=== PATIENT | male | born 1960 | race Caucasian/White ===

== ENCOUNTER 2018-02-25 00:24 | Observation (INO) | payer BC ==
[2018-02-25] MEDS ORDERED: ASPIRIN 81 MG CHEWABLE TABLET ONE (00:43)
[2018-02-25] MEDS ORDERED: NITROGLYCERIN 0.4 MG/TAB SL ONE (00:52)
[2018-02-25 01:10] LABS: Absolute Lymphocytes (CBC) 2.7 K/uL (0.7-4.9); Absolute Monocytes 0.5 K/uL (0.1-1.3); Absolute Neutrophil 2.4 K/uL (1.8-8.0); Basophils % 1.3 % (0-1.3); Eosinophils % 3.7 % (0-4.4); Hematocrit 45.8 % (39.6-49.0); Lymphocytes % 45.7 % (15.3-44.8); MCH 33.7 pg (27.0-35.0); MCV 97.5 fL (80-100); MPV 8.4 fL (7.6-11.3); Monocytes % 8.4 % (3.3-12.3)
[2018-02-25 01:14] LABS: Protime INR 0.95
[2018-02-25 01:24] LABS: Bicarbonate 25 mEq/L (21-31); Glucose Level 93 mg/dL (65-120); Potassium 3.8 mEq/L (3.6-5.0); Sodium Level 139 mEq/L (135-145)
[2018-02-25 01:30] LABS: ALT/SGPT 58 IU/L (10-60); AST/SGOT 42 IU/L (10-42); Alkaline Phosphatase 59 IU/L (42-121); BUN Blood Urea Nitrogen 9 mg/dL (6-20); Bilirubin Direct 0.1 mg/dL (0-0.2); Bilirubin Total 0.8 mg/dL (0.3-1.2); CKMB Creatine Kinase MB 2.8 ng/ml (0.3-4.0); Creatine Phosphokinase 236 IU/L (22-269); Magnesium 2.3 mg/dL (1.8-2.5); Protein, Total 7.4 g/dL (6.0-8.3)
--- NOTE | 2018-02-25 02:18 | EDPHYS ---
Physician Documentation [facility] Name: Sujit Madrigal Jr Age: 57 yrs Sex: Male : 1960 Arrival Date: 02/25/2018 Time: 00:25 Bed 15 Private MD: Marni Bowman F ED Physician Tyrone Nixon HPI: 02/25 00:50 This 57 yrs old Male presents to ER via Ambulatory with complaints of Chest pm1 Pain, Dizziness. 00:50 The patient or guardian reports chest pain that is located primarily in the anterior pm1 chest wall, right. Onset: at 00:15. The pain does not radiate. Associated signs and symptoms: Pertinent positives: dizziness, shortness of breath, Pertinent negatives: abdominal pain, nausea, vomiting. The chest pain is described as sharp. Duration: The patient or guardian reports a single episode. Modifying factors: The symptoms are alleviated by nothing. the symptoms are aggravated by deep breath. Severity of pain: in the emergency department the pain is a 5 / 10. The patient has not experienced similar symptoms in the past. Patient got up to urinate and started experiencing chest pain. Historical: - Allergies: 00:37 No Known Allergies; fc - Home Meds: 00:37 None [Active]; fc - PMHx: 00:37 None; fc - PSHx: 00:37 Cholecystectomy; Appendectomy; fc - Immunization history:: Last tetanus immunization: unknown. - Social history:: Smoking status: Patient/guardian denies using tobacco, Patient uses alcohol, occasionally. Patient/guardian denies using street drugs. - Ebola Screening: : Patient negative for fever greater than or equal to 101.5 degrees Fahrenheit, and additional compatible Ebola Virus Disease symptoms Patient denies exposure to infectious person Patient denies travel to an Ebola-affected area in the 21 days before illness onset. ROS: 01:00 Constitutional: Negative for fever, chills, and weight loss, Eyes: Negative for injury, pm1 pain, redness, and discharge, ENT: Negative for injury, pain, and discharge, Neck: Negative for injury, pain, and swelling. 01:00 Abdomen/GI: Negative for abdominal pain, nausea, vomiting, diarrhea, and constipation, Back: Negative for injury and pain, : Negative for injury, bleeding, discharge, and swelling, MS/Extremity: Negative for injury and deformity, Skin: Negative for injury, rash, and discoloration. 01:00 Cardiovascular: Positive for chest pain, Negative for edema, orthopnea, palpitations. 01:00 Respiratory: Positive for shortness of breath, Negative for cough, dyspnea on exertion. 01:00 Neuro: Positive for dizziness, Negative for numbness, syncope, near syncope, tingling, weakness. Exam: 01:00 Constitutional: This is a well developed, well nourished patient who is awake, alert, pm1 and in no acute distress. Head/Face: Normocephalic, atraumatic. Eyes: Pupils equal round and reactive to light, extra-ocular motions intact. Lids and lashes normal. Conjunctiva and sclera are non-icteric and not injected. Cornea within normal limits. Periorbital areas with no swelling, redness, or edema. ENT: Nares patent. No nasal discharge, no septal abnormalities noted. Tympanic membranes are normal and external auditory canals are clear. Oropharynx with no redness, swelling, or masses, exudates, or evidence of obstruction, uvula midline. Mucous membranes moist. Neck: Trachea midline, no thyromegaly or masses palpated, and no cervical lymphadenopathy. Supple, full range of motion without nuchal rigidity, or vertebral point tenderness. No Meningismus. Chest/axilla: Normal chest wall appearance and motion. Nontender with no deformity. No lesions are appreciated. Cardiovascular: Regular rate and rhythm with a normal S1 and S2. No gallops, murmurs, or rubs. Normal PMI, no JVD. No pulse deficits. Respiratory: Lungs have equal breath sounds bilaterally, clear to auscultation and percussion. No rales, rhonchi or wheezes noted. No increased work of breathing, no retractions or nasal flaring. Abdomen/GI: Soft, non-tender, with normal bowel sounds. No distension or tympany. No guarding or rebound. No evidence of tenderness throughout. Back: No spinal tenderness. No costovertebral tenderness. Full range of motion. Skin: Warm, dry with normal turgor. Normal color with no rashes, no lesions, and no evidence of cellulitis. MS/ Extremity: Pulses equal, no cyanosis. Neurovascular intact. Full, normal range of motion. 01:00 Neuro: Orientation: is normal, Motor: moves all fours, Sensation: is normal, no obvious gross deficits. Vital Signs: 00:30 BP 155 / 106; Pulse 64; Resp 16; Temp 97.6(O); Pulse Ox 99% on R/A; Weight 108.86 kg fc (R); Height 5 ft. 11 in. (180.34 cm) (R); Pain 6/10; 00:52 BP 138 / 94; Pulse 69; Resp 20; Pulse Ox 96% ; Pain 5/10; cr4 00:57 BP 138 / 88; Pulse 73; Resp 18; Pulse Ox 97% 2 lpm ; Pain 4/10; cr4 01:03 BP 115 / 82; Pulse 79; Resp 18; Pulse Ox 96% 2 lpm ; Pain 3/10; cr4 01:08 BP 122 / 71; Pulse 74; Resp 14; Pulse Ox 98% 2 lpm ; Pain 2/10; cr4 01:25 BP 115 / 77; Pulse 72; Resp 12; Pulse Ox 99% 2 lpm ; Pain 2/10; cr4 02:54 BP 111 / 83; Pulse 55; Resp 18 S; Pulse Ox 99% on 2 lpm NC; Pain 2/10; jd3 00:30 Body Mass Index 33.47 (108.86 kg, 180.34 cm) fc MDM: 00:34 Patient medically screened. pm1 02:07 Data reviewed: vital signs. Data interpreted: Pulse oximetry: on room air is 99 %. pm1 Interpretation: normal. 02:08 Counseling: I had a detailed discussion with the patient and/or guardian regarding: the pm1 historical points, exam findings, and any diagnostic results supporting the discharge/admit diagnosis, lab results, radiology results, the need for further work-up and treatment in the hospital, to return to the emergency department if symptoms worsen or persist or if there are any questions or concerns that arise at home. 03:43 Physician consultation: Marni Bowman MD was contacted at 03:43, regarding admission, pm1 patient's condition, and will see patient tomorrow. 02/25 00:34 Order name: Basic Metabolic Panel; Complete Time: 02:06 pm1 02/25 00:34 Order name: BNP; Complete Time: 02:06 pm1 02/25 00:34 Order name: CBC with Diff; Complete Time: 01:29 pm1 02/25 00:34 Order name: Ckmb; Complete Time: 02:06 pm02/25 00:34 Order name: CPK; Complete Time: 02:06 pm02/25 00:34 Order name: LFT's; Complete Time: 02:06 pm02/25 00:34 Order name: Magnesium; Complete Time: 02:06 pm02/25 00:34 Order name: PT-INR; Complete Time: 01:29 pm02/25 00:34 Order name: Ptt, Activated; Complete Time: 01:29 pm02/25 00:34 Order name: Troponin (emerg Dept Use Only); Complete Time: 02:06 pm02/25 00:34 Order name: XRAY Chest (1 view) 02/25 00:34 Order name: EKG; Complete Time: 00:34 pm02/25 00:34 Order name: Cardiac monitoring; Complete Time: 01:17 pm02/25 00:34 Order name: EKG - Nurse/Tech; Complete Time: 01:17 pm02/25 00:34 Order name: IV Saline Lock; Complete Time: 01:17 pm02/25 00:34 Order name: Labs collected and sent; Complete Time: 01:17 pm02/25 00:34 Order name: O2 Per Protocol; Complete Time: 01:17 pm02/25 00:34 Order name: O2 Sat Monitoring; Complete Time: 01:17 pm1 Administered Medications: 00:47 Drug: Aspirin Chewable Tablet 324 mg Route: PO; cr4 02:02 Follow up: Response: No adverse reaction; Pain is decreased cr4 01:11 Drug: Nitroglycerin 0.4 mg {Note: 3 doses given 0052, 0057,0108 .} Route: Sublingual; cr4 01:15 Follow up: Response: No adverse reaction; Marked relief of symptoms; Pain is decreased cr4 03:06 Follow up: Response: No adverse reaction; Marked relief of symptoms jd3 02:39 Drug: Lovenox 1 mg/kg Route: Sub-Q; Site: abdomen; cr4 03:06 Follow up: Response: No adverse reaction jd3 Disposition: 02/25/18 02:18 Hospitalization ordered by Marni Bowman for Observation. Preliminary diagnosis is Chest pain, unspecified. - Bed requested for Telemetry/MedSurg (observation). - Status is Observation. jd3 - Condition is Stable. - Problem is new. - Symptoms have improved. UTI on Admission? No Addendum: 02/28/2018 07:16 Co-signature as Attending Physician, Tyrone Nixon MD. g s Signatures: Dispatcher [employer] EDMS Leyda Marmolejo RN RN Mis Navarro, RN RN Sarika Dorantes, RN RN cr4 Uvaldo Guaman, SENIOR SPECIALIST SENIOR SPECIALIST pm1 Tyrone Nixon MD MD Jalen Arvizu RN RN jd3 Corrections: (The following items were deleted from the chart) 02/25 02:44 02:18 Hospitalization Ordered by Marni Bowman MD for Observation. Preliminary mw diagnosis is Chest pain, unspecified. Bed requested for Telemetry/MedSurg (observation). Status is Observation. Condition is Stable. Problem is new. Symptoms have improved. UTI on Admission? No. pm1 03:08 02:44 02/25/2018 02:18 Hospitalization Ordered by Marni Bowman MD for Observation. jd3 Preliminary diagnosis is Chest pain, unspecified. Bed requested for Telemetry/MedSurg (observation). Status is Observation. Condition is Stable. Problem is new. Symptoms have improved. UTI on Admission? No. mw
--- NOTE | 2018-02-25 02:18 | ER ---
Nurse's Notes [facility] Name: Sujit Madrigal Jr Age: 57 yrs Sex: Male : 1960 Arrival Date: 02/25/2018 Time: 00:25 Bed 15 Private MD: Marni Bowman F Diagnosis: Chest pain, unspecified Presentation: 02/25 00:30 Presenting complaint: Patient states: that he woke up and was walking to the bathroom. fc He started to have severe sharp right sided chest pain along with dizziness. Denies any nausea or vomiting but does have shortness of breath. Transition of care: patient was not received from another setting of care. Onset of symptoms was February 25, 2018 at 00:15. Risk Assessment: Do you want to hurt yourself or someone else? Patient reports no desire to harm self or others. Initial Sepsis Screen: Does the patient meet any 2 criteria? No. Patient's initial sepsis screen is negative. Does the patient have a suspected source of infection? No. Patient's initial sepsis screen is negative. Care prior to arrival: None. 00:30 Method Of Arrival: Ambulatory 00:30 Acuity: GRADY 3 fc Historical: - Allergies: 00:37 No Known Allergies; fc - Home Meds: 00:37 None [Active]; fc - PMHx: 00:37 None; fc - PSHx: 00:37 Cholecystectomy; Appendectomy; fc - Immunization history:: Last tetanus immunization: unknown. - Social history:: Smoking status: Patient/guardian denies using tobacco, Patient uses alcohol, occasionally. Patient/guardian denies using street drugs. - Ebola Screening: : Patient negative for fever greater than or equal to 101.5 degrees Fahrenheit, and additional compatible Ebola Virus Disease symptoms Patient denies exposure to infectious person Patient denies travel to an Ebola-affected area in the 21 days before illness onset. Screenin:30 Abuse screen: Denies threats or abuse. Nutritional screening: No deficits noted. fc Tuberculosis screening: No symptoms or risk factors identified. Fall Risk None identified. Assessment: 00:39 General: Appears distressed, uncomfortable, obese, Behavior is anxious, restless. Pain: cr4 Complains of pain in chest Pain does not radiate. Pain currently is 5 out of 10 on a pain scale. Quality of pain is described as pressure, stabbing, Pain began 30 min ago. Is intermittent, Alleviated by breathing in. Neuro: Reports dizziness, a syncopal episode Denies weakness blurred vision difficulty swallowing, numbness headache. Cardiovascular: Reports chest pain, diaphoresis, lightheadedness, palpitations, syncope, Heart tones S1 S2 Capillary refill < 3 seconds Clubbing of nail beds is absent JVD is absent Patient's skin is warm and dry. Pulses are all present. Edema is absent. Rhythm is regular Chest pain is described as "worst pain of my life". Respiratory: Airway is patent Trachea midline Respiratory effort is even, unlabored, Respiratory pattern is regular, Breath sounds are clear bilaterally. GI: Reports nausea. : Denies burning with urination, inability to void, incontinence. EENT: No deficits noted. Derm: No deficits noted. 01:10 Reassessment: Patient and/or family updated on plan of care and expected duration. Pain cr4 level reassessed. Patient is alert, oriented x 3, equal unlabored respirations, skin warm/dry/pink. Patient states feeling better. Patient states symptoms have improved. 01:58 Reassessment: Patient and/or family updated on plan of care and expected duration. Pain cr4 level reassessed. Patient is alert, oriented x 3, equal unlabored respirations, skin warm/dry/pink. Patient states feeling better. Patient states symptoms have improved. Cardiovascular: Reports chest pain, syncope, improved greatly since arriving to floor. 03:06 Reassessment: Patient appears in no apparent distress at this time. Patient and/or jd3 family updated on plan of care and expected duration. Pain level reassessed. Patient is alert, oriented x 3, equal unlabored respirations, skin warm/dry/pink. pt reported understanding of need for admission. Vital Signs: 00:30 BP 155 / 106; Pulse 64; Resp 16; Temp 97.6(O); Pulse Ox 99% on R/A; Weight 108.86 kg fc (R); Height 5 ft. 11 in. (180.34 cm) (R); Pain 6/10; 00:52 BP 138 / 94; Pulse 69; Resp 20; Pulse Ox 96% ; Pain 5/10; cr4 00:57 BP 138 / 88; Pulse 73; Resp 18; Pulse Ox 97% 2 lpm ; Pain 4/10; cr4 01:03 BP 115 / 82; Pulse 79; Resp 18; Pulse Ox 96% 2 lpm ; Pain 3/10; cr4 01:08 BP 122 / 71; Pulse 74; Resp 14; Pulse Ox 98% 2 lpm ; Pain 2/10; cr4 01:25 BP 115 / 77; Pulse 72; Resp 12; Pulse Ox 99% 2 lpm ; Pain 2/10; cr4 02:54 BP 111 / 83; Pulse 55; Resp 18 S; Pulse Ox 99% on 2 lpm NC; Pain 2/10; jd3 00:30 Body Mass Index 33.47 (108.86 kg, 180.34 cm) fc ED Course: 00:25 Patient arrived in ED. ds1 00:25 Marni Bowman MD is Private Physician. ds1 00:27 Uvaldo Guaman NP is PHCP. pm1 00:27 Tyrone Nixon MD is Attending Physician. pm1 00:30 Arm band placed on Patient placed in an exam room, on a stretcher. fc 00:30 Patient has correct armband on for positive identification. Placed in gown. Bed in low fc position. Call light in reach. groundwater monitoring technician on. Pulse ox on. NIBP on. 00:30 No provider procedures requiring assistance completed. Patient maintains SpO2 fc saturation greater than 95% on room air. 00:36 Triage completed. fc 00:42 X-ray completed. Portable x-ray completed in exam room. Patient tolerated procedure jw2 well. 00:44 XRAY Chest (1 view) In Process Unspecified. EDMS 00:44 Inserted saline lock: 20 gauge in right antecubital area, using aseptic technique. jd3 Blood collected. 02:17 Marni Bowman MD is Hospitalizing Provider. pm1 03:05 Patient admitted, IV remains in place. jd3 Administered Medications: 00:47 Drug: Aspirin Chewable Tablet 324 mg Route: PO; cr4 02:02 Follow up: Response: No adverse reaction; Pain is decreased cr4 01:11 Drug: Nitroglycerin 0.4 mg {Note: 3 doses given 0052, 0057,0108 .} Route: Sublingual; cr4 01:15 Follow up: Response: No adverse reaction; Marked relief of symptoms; Pain is decreased cr4 03:06 Follow up: Response: No adverse reaction; Marked relief of symptoms jd3 02:39 Drug: Lovenox 1 mg/kg Route: Sub-Q; Site: abdomen; cr4 03:06 Follow up: Response: No adverse reaction jd3 Outcome: 02:18 Decision to Hospitalize by Provider. pm1 03:05 Admitted to Med/surg accompanied by tech, via wheelchair, room 204, with chart, Report jd3 called to Orion ALMANZAR 03:05 Condition: stable 03:05 Instructed on the need for admit, Demonstrated understanding of instructions. 03:08 Patient left the ED. jd3 Signatures: Dispatcher [employer] EDMS Mis Navarro, RN RN Omayra Rodriguez dsSarika Leal RN RN cr4 Uvaldo Guaman, [employer] P[employer]ER pm1 Ricarda Frost2 Jalen Arvizu RN RN jd3 Corrections: (The following items were deleted from the chart) 02:58 02:54 BP 111 / 83; Pulse 55bpm; Resp 18bpm; Spontaneous; Pulse Ox 99% RA; Pain 2/10; jd3jd3
[2018-02-25] MEDS ORDERED: ENOXAPARIN 100 MG/ML SYR SQ ONE (02:27)
[2018-02-25] MEDS ORDERED: MORPHINE 4 MG/ML SYR IV PRN (03:14)
[2018-02-25] MEDS ORDERED: ACETAMINOPHEN 500 MG TAB PO PRN (03:14)
[2018-02-25] MEDS ORDERED: ONDANSETRON 4 MG/2 ML VIAL IV PRN (03:14)
[2018-02-25 04:20] VITALS: BMI 34.0
[2018-02-25] MEDS ORDERED: ASPIRIN EC 81 MG TAB PO SCH (09:00)
--- NOTE | 2018-02-25 10:18 | EKG ---
Test Date: 2018-02-25 Test Time: 00:36:21 Dryer Operator: MEASUREMENT RESULTS: Intervals: Rate: 63 CO: 142 QRSD: 86 QT: 392 QTc: 401 [place]: P: 27 CO: 142 QRS: 54 T: 50 INTERPRETIVE STATEMENTS: Normal sinus rhythm Normal ECG Compared to ECG 07/22/2010 13:26:34 Sinus arrhythmia no longer present Electronically Signed On 02-25-18 10:17:31 CDT by Russell Duenas
--- NOTE | 2018-02-25 10:27 | RAD REPORT ---
EXAM DESCRIPTION: RAD - Chest Single View - 02/25/2018 12:45 am CLINICAL HISTORY: Chest pain. COMPARISON: 09/20/2013 FINDINGS: Portable technique limits examination quality. The lungs are grossly clear. The heart is normal in size. No displaced fractures. IMPRESSION: No acute intrathoracic process suspected.
[2018-02-25 13:27] VITALS: O2SAT 97
[2018-02-25 14:39] VITALS: BP 127/78; TEMP 97
--- NOTE | 2018-02-25 15:39 | SS ---
Date of Discharge: 02/25/2018 History Of Present Illness: A 57-year-old male, who presented to the emergency room with a complaint that he had been having right-sided chest pain, which is sharp that happened to him when he woke up, went to the bathroom. He felt a little bit dizzy, then he got concerned, and he felt like chest hazel n as described above. The chest pain had no radiation. The patient had no nausea, no vomiting. Voi deena no other complaints. Review of Systems: Cardiovascular: No complaints. No palpitation. Respiratory: No complaints. Genitourinary: No complaints. Skeletomuscular: No complaints. Gastrointestinal: No complaints. Neurological: No complaints. Past Medical History: No history of coronary artery disease or other chronic medical illnesses. Past Surgical History: He has had cholecystectomy and appendectomy in the past. Social History: Denies smoking, alcohol, or drug abuse history. Family History: Noncontributing. Medications: None. Allergies: NO KNOWN DRUG ALLERGIES. Physical Examination: Vital Signs: Blood pressure 123/79, pulse 50, and temperature 97.4. His pulse rate was in the 70s o n presentation; however, he was given beta blockers. Room air pulse oximetry 98%. HEART: Regular rate and rhythm. Chest: Clear to auscultation. Abdomen: Soft. Benign. Bowel sounds are active. Extremities: No edema. No cyanosis. Peripheral pulses are felt. Neurological: Alert, oriented, nonfocal. Grossly intact. Chest x-ray, no acute pathology. EKG normal sinus rhythm. Laboratory Data: CBC and chemistry nonrevealing. Cardiac enzyme, troponin less than 0.03. Hospital Course: The patient was admitted to the hospital. We holly the serial cardiac enzymes, whic h came back negative. Cardiology has seen the patient and they thought that the patient could be wor ked out as an outpatient with a stress test and that he could be discharged. The patient's chest hazel n has resolved almost by the time he came to emergency room and he had no other complaints. He is he modynamically stable. I think, we will go ahead and discharge the patient to follow up with Cardiolo gy with their plan and follow up with me. Look discharge orders for details. MFS/MODL Voice ID: [id number] Report ID: [id number]
--- NOTE | 2018-02-25 23:38 | CON ---
Date of Consultation: 02/25/2018 The patient was admitted to Dr. Bowman's service on 02/25/2018. I saw the patient on 02/25/2018. Reason For Consultation: Chest pain. History Of Present Illness: Mr. Madrigal is a 57-year-old white male without any past medical history whatsoever. His only risk factor from heart disease is his age, gender, and family history of heart disease on his dad's side. His dad had a massive ID in his 60s. He came in with episode of chest p ain that was sharp, left-sided, stabbing, that lasted about an hour. Prior to that, he had awoken to use the restroom from sleep and he got very dizzy and short of breath and he decided to come to the emergency room. His chest pain was much worse on breathing, that did not radiate. No PND, orthopnea , pedal edema, palpitations, or syncope. He denied any nausea or vomiting or diaphoresis. By the ti me I saw him, he already had normal CPKs, MBs, troponin, EKG, and chest x-ray and he was asymptomatic . Past Medical History: Negative. Allergies: NONE. Review of Systems: Negative. Social History: Negative for tobacco. Family History: Positive for heart disease. Medications: None. Physical Examination: Vital Signs: Stable. Afebrile. HEENT: Negative. Neck: Supple. No bruit, lymphadenopathy, JVD, or thyromegaly. Chest: Clear to auscultation and percussion. Cardiac Exam: Revealed a regular rhythm and rate without any murmurs, gallops, or rubs. Abdomen: Benign. Extremities: Revealed no clubbing, cyanosis, or edema. Diagnostic Data: As stated earlier. Impression And Plan: 1.Chest pain, most likely secondary to pleurisy. 2.Dizziness and shortness of breath may have been secondary to orthostatic hypertension. 3.Family history of heart disease. Mr. Madrigal has ruled out for a myocardial infarction. I think considering his risk factors and the duration of his symptoms of almost an hour make me concerned. I certainly would not keep him in the hospital, but I would like him to have an outpatient echocardiogram and a stress Cardiolite and I ryne l make arrangements for that as an outpatient. He can go home otherwise as far as I am concerned. NB/MODL Voice ID: [id number] Report ID: [id number]
== END 2018-02-25 14:07 | disposition home or self-care (01) ==
LOC: ER 00:24 → ERHOLD 02:48 → 2ND 02:51
PROVIDERS: ADMIT Internal Medicine; ATTEND Internal Medicine
DX: R07.9 Chest pain, unspecified (principal); Z82.49 Family history of ischemic heart disease and other diseases of the circulatory system
CPT/HCPCS: 36415; 71045; 80048; 80076; 82550; 82553; 83735; 83880; 84484; 85025; 85610; 85730; 93005; 96372; 99285; G0378; J1650

== ENCOUNTER 2018-09-08 13:54 | Emergency (ER) | payer BC ==
[2018-09-08 15:26] LABS: Absolute Lymphocytes (CBC) 2.2 K/uL (0.7-4.9); Absolute Monocytes 0.7 K/uL (0.1-1.3); Absolute Neutrophil 4.1 K/uL (1.8-8.0); Basophils % 1.1 % (0-1.3); Eosinophils % 2.3 % (0-4.4); Hematocrit 44.1 % (39.6-49.0); MCH 34.5 pg (27.0-35.0); MCV 97.5 fL (80-100); MPV 7.7 fL (7.6-11.3); Monocytes % 9.3 % (3.3-12.3); RBC Red Blood Cell Count 4.52 M/uL (4.33-5.43)
[2018-09-08 15:40] LABS: Albumin 3.8 g/dL (3.4-5.0); Bilirubin Direct 0.2 mg/dL (0-0.2); Bilirubin Total 0.5 mg/dL (0.2-1.0); Protein, Total 7.7 g/dL (6.4-8.2)
--- NOTE | 2018-09-08 17:52 | RAD REPORT ---
EXAM DESCRIPTION: CT - Abdomen Pelvis W Contrast - 09/08/2018 5:33 pm CLINICAL HISTORY: Abdominal pain, rectal bleeding COMPARISON: None. TECHNIQUE: Biphasic, helical CT imaging of the abdomen and pelvis was performed following 100 ml non -ionic IV contrast. Oral contrast was given. All CT scans are performed using dose optimization technique as appropriate and may include automated exposure control or mA/KV adjustment according to patient size. FINDINGS: No suspicious findings in the lung bases. The liver, spleen, and pancreas show no suspicious findings. Mild fatty infiltration present in the l iver. Cholecystectomy clips are present. No biliary tree dilatation. Symmetric renal function with no hydronephrosis. Nonobstructing calculi are present on the left. No p yelonephritis or acute renal parenchymal process. Partially filled urinary bladder shows no suspiciou s finding. Prostate gland and seminal vesicles within normal range. No gastric dilatation or wall thickening. No acute small bowel finding. No acute colon process. No ap pendicitis findings. There is minimal diverticulosis. No free air, free fluid or inflammatory strand ing. No hernia, mass or bulky lymphadenopathy. No adrenal abnormality. No suspicious bony findings. IMPRESSION: Contrast enhanced CT abdomen and pelvis showing no significant or suspicious finding. N onacute findings detailed in the body of the report.
--- NOTE | 2018-09-08 18:21 | EDPHYS ---
Physician Documentation [facility] Name: Sujit Madrigal Jr Age: 57 yrs Sex: Male : 1960 Arrival Date: 09/08/2018 Time: 13:56 Bed 14 Private MD: Marni Bowman F ED Physician Julito Mckenzie HPI: 09/08 23:40 This 57 yrs old Male presents to ER via Ambulatory with complaints of BLOOD kdr IN STOOL. 23:40 The patient presents to the emergency department with rectal bleeding, a moderate kdr amount, "filled toilet", bright red blood with bowel movement, on toilet paper, in toilet bowl, with multiple such episodes, 2 times since symptom onset. Onset: The symptoms/episode began/occurred today. Abdominal pain: none is appreciated. Modifying factors: The symptoms are alleviated by nothing, the symptoms are aggravated by nothing. Associated signs and symptoms: The patient has no apparent associated signs or symptoms. Severity of symptoms: At their worst the symptoms were moderate in the emergency department the symptoms have resolved and did so earlier today, have improved. The patient has not experienced similar symptoms in the past. The patient has not recently seen a physician. Historical: - Allergies: 14:10 No Known Allergies; hb - Home Meds: 14:10 None [Active]; hb - PMHx: 14:10 None; hb - PSHx: 14:10 Cholecystectomy; Appendectomy; hb 14:12 Shoulder - Left; Foot - Right; hb - Immunization history:: Adult Immunizations up to date. - Social history:: Smoking status: Patient/guardian denies using tobacco. - Ebola Screening: : No symptoms or risks identified at this time. ROS: 23:40 Constitutional: Negative for fever, chills, and weight loss, Eyes: Negative for injury, kdr pain, redness, and discharge, ENT: Negative for injury, pain, and discharge, Neck: Negative for injury, pain, and swelling, Cardiovascular: Negative for chest pain, palpitations, and edema, Respiratory: Negative for shortness of breath, cough, wheezing, and pleuritic chest pain, Back: Negative for injury and pain, : Negative for injury, bleeding, discharge, and swelling, MS/Extremity: Negative for injury and deformity, Skin: Negative for injury, rash, and discoloration, Neuro: Negative for headache, weakness, numbness, tingling, and seizure activity. Psych: Negative for depression, anxiety, suicide ideation, homicidal ideation, and hallucinations, Allergy/Immunology: Negative for hives, rash, and allergies, Endocrine: Negative for neck swelling, polydipsia, polyuria, polyphagia, and marked weight changes, Hematologic/Lymphatic: Negative for swollen nodes, abnormal bleeding, and unusual bruising. 23:40 Abdomen/GI: Positive for rectal bleeding, Negative for abdominal pain, nausea and vomiting, nausea, vomiting, and diarrhea, nausea, vomiting, diarrhea, constipation, abdominal cramps, abdominal distension, anorexia, dysphagia, hematemesis, black/tarry stool, rectal pain, bowel incontinence, flatulence, acute changes, The patient had decreased bowel movements for a few days and then increased BM and soft stools. Exam: 23:40 Constitutional: This is a well developed, well nourished patient who is awake, alert, kdr and in no acute distress. Head/Face: Normocephalic, atraumatic. Eyes: Pupils equal round and reactive to light, extra-ocular motions intact. Lids and lashes normal. Conjunctiva and sclera are non-icteric and not injected. Cornea within normal limits. Periorbital areas with no swelling, redness, or edema. Neck: Trachea midline, no thyromegaly or masses palpated, and no cervical lymphadenopathy. Supple, full range of motion without nuchal rigidity, or vertebral point tenderness. No Meningismus. Chest/axilla: Normal chest wall appearance and motion. Nontender with no deformity. No lesions are appreciated. Cardiovascular: Regular rate and rhythm with a normal S1 and S2. No gallops, murmurs, or rubs. Normal PMI, no JVD. No pulse deficits. Respiratory: Lungs have equal breath sounds bilaterally, clear to auscultation and percussion. No rales, rhonchi or wheezes noted. No increased work of breathing, no retractions or nasal flaring. Back: No spinal tenderness. No costovertebral tenderness. Full range of motion. Skin: Warm, dry with normal turgor. Normal color with no rashes, no lesions, and no evidence of cellulitis. MS/ Extremity: Pulses equal, no cyanosis. Neurovascular intact. Full, normal range of motion. Neuro: Awake and alert, GCS 15, oriented to person, place, time, and situation. Cranial nerves II-XII grossly intact. Motor strength 5/5 in all extremities. Sensory grossly intact. Cerebellar exam normal. Normal gait. Psych: Awake, alert, with orientation to person, place and time. Behavior, mood, and affect are within normal limits. 23:40 Abdomen/GI: Inspection: abdomen appears normal, Bowel sounds: active, all quadrants, Palpation: soft, nontender, in all quadrants, Rectal exam: Prostate: normal, rectal tone normal, Stool: grossly bloody, guaiac positive, hemorrhoid(s), internal, with pain, mass, is not appreciated, swelling, is not appreciated, tenderness, that is mild, With digital exam the patient was very tender. Vital Signs: 14:09 BP 126 / 92; Pulse 83; Resp 16; Temp 98.2; Pulse Ox 100% on R/A; Pain 0/10; hb 15:30 BP 132 / 82; Pulse 80; Resp 18 S; Temp 98.3; Pulse Ox 99% on R/A; Pain 0/10; sg 16:45 BP 136 / 80; Pulse 77; Resp 17; Pulse Ox 100% on R/A; Pain 0/10; sg 19:30 BP 138 / 79; Pulse 81; Resp 17 S; Pulse Ox 99% on R/A; cc3 MDM: 18:20 Patient medically screened. kdr 23:52 Data reviewed: vital signs, nurses notes, lab test result(s), radiologic studies. kdr Counseling: I had a detailed discussion with the patient and/or guardian regarding: the historical points, exam findings, and any diagnostic results supporting the discharge/admit diagnosis, lab results, radiology results, the need for outpatient follow up. 09/08 14:36 Order name: Basic Metabolic Panel; Complete Time: 18:18 kdr 09/08 14:36 Order name: CBC with Diff kdr 09/08 14:36 Order name: Creatinine for Radiology; Complete Time: 18:18 kdr 09/08 14:36 Order name: Hepatic Function; Complete Time: 18:18 kdr 09/08 14:36 Order name: Lipase; Complete Time: 18:18 kdr 09/08 16:49 Order name: CT Abd/Pelvis - W/Contrast; Complete Time: 18:18 kdr 09/08 14:36 Order name: IV Saline Lock; Complete Time: 15:19 kdr 09/08 14:36 Order name: Labs collected and sent; Complete Time: 15:19 kdr Administered Medications: 19:20 Drug: Pepcid 20 mg Route: PO; jd3 19:40 Follow up: Response: No adverse reaction; Pain is decreased cc3 Disposition: 09/08/18 18:20 Discharged to Home. Impression: Rectal bleeding. - Condition is Stable. - Discharge Instructions: Rectal Bleeding, [id number]. - Prescriptions for Pepcid 20 mg Oral Tablet - take 1 tablet by ORAL route once daily; 20 tablet. - Medication Reconciliation Form, Thank You Letter form. - Follow up: Marni Bowman MD; When: 2 - 3 days; Reason: If symptoms return, Further diagnostic work-up, Recheck today's complaints, Continuance of care, Re-evaluation by your physician. - Problem is new. - Symptoms are unchanged. Signatures: Dispatcher [employer] EDAZ Julito Mckenzie MD MD [facility] Shyann Sheehan RN RN Jalen Arvizu RN RN jd3 Kaylin Toscano cc3 Corrections: (The following items were deleted from the chart) 19:42 18:20 09/08/2018 18:20 Discharged to Home. Impression: Rectal bleeding. Condition is jd3 Stable. Forms are Medication Reconciliation Form, Thank You Letter, Antibiotic Education, Prescription Opioid Use. Follow up: Marni Bowman; When: 2 - 3 days; Reason: If symptoms return, Further diagnostic work-up, Recheck today's complaints, Continuance of care, Re-evaluation by your physician. Problem is new. Symptoms are unchanged. kdr 23:52 23:40 Abdomen/GI: Inspection: abdomen appears normal, Bowel sounds: active, all kdr quadrants, Palpation: soft, nontender, in all quadrants, Rectal exam: Prostate: normal, rectal tone normal, Stool: grossly bloody, guaiac positive, hemorrhoid(s), internal, with pain, kdr
--- NOTE | 2018-09-08 18:21 | ER ---
Nurse's Notes [facility] Name: Sujit Madrigal Jr Age: 57 yrs Sex: Male : 1960 Arrival Date: 09/08/2018 Time: 13:56 Bed 14 Private MD: Marni Bowman F Diagnosis: Rectal bleeding Presentation: 09/08 14:08 Presenting complaint: Bright red blood in stool since last night. Denies pain. hb Transition of care: patient was not received from another setting of care. Onset of symptoms was September 07, 2018. Risk Assessment: Do you want to hurt yourself or someone else? Patient reports no desire to harm self or others. Care prior to arrival: None. 14:08 Method Of Arrival: Ambulatory hb 14:08 Acuity: GRADY 3 hb 19:20 Initial Sepsis Screen: Does the patient meet any 2 criteria? No. Patient's initial cc3 sepsis screen is negative. Does the patient have a suspected source of infection? No. Patient's initial sepsis screen is negative. Historical: - Allergies: 14:10 No Known Allergies; hb - Home Meds: 14:10 None [Active]; hb - PMHx: 14:10 None; hb - PSHx: 14:10 Cholecystectomy; Appendectomy; hb 14:12 Shoulder - Left; Foot - Right; hb - Immunization history:: Adult Immunizations up to date. - Social history:: Smoking status: Patient/guardian denies using tobacco. - Ebola Screening: : No symptoms or risks identified at this time. Screenin:30 Abuse screen: Denies threats or abuse. Denies injuries from another. Nutritional sg screening: No deficits noted. Tuberculosis screening: No symptoms or risk factors identified. Never had TB. Fall Risk None identified. Assessment: 14:30 General: Appears in no apparent distress. comfortable, well groomed, well developed, sg well nourished, Behavior is calm, cooperative, appropriate for age. Pain: Denies pain. Cardiovascular: Capillary refill is brisk in bilateral fingers Patient's skin is warm and dry. Pulses are palpable in right radial artery and left radial artery Chest pain is denied. Respiratory: Airway is patent Respiratory effort is even, unlabored, Respiratory pattern is regular, symmetrical, Breath sounds are clear bilaterally. Denies cough, shortness of breath labored breathing, pain with respiration, pain with cough, pain with movement. GI: Reports bloody stool, tolerance of fluids, tolerance of food. : No signs and/or symptoms were reported regarding the genitourinary system. EENT: No signs and/or symptoms were reported regarding the EENT system. Nares are clear bilaterally Oral mucosa is moist. Throat is pink Reports pt reports pressure in bilateral ears, pt states having had a slight nose bleed as well. Derm: Skin is pink, warm \T\ dry. Musculoskeletal: No signs and/or symptoms reported regarding the musculoskeletal system. 19:15 Reassessment: Patient appears in no apparent distress at this time. Patient and/or cc3 family updated on plan of care and expected duration. Pain level reassessed. Patient is alert, oriented x 3, equal unlabored respirations, skin warm/dry/pink. Received this male patient from morning shift RN Robin as a case of blood in stool, to irrigate left ear prior to sending home for discharge as per Dr. Mckenzie. With IV cannula gauge 20 at the right ACV saline locked. 19:40 Reassessment: Patient appears in no apparent distress at this time. Patient and/or cc3 family updated on plan of care and expected duration. Pain level reassessed. Patient is alert, oriented x 3, equal unlabored respirations, skin warm/dry/pink. Irrigated the left ear. Patient discharged home with prescription given. IV cannula removed and patient left ER vitally stable and ambulatory. Vital Signs: 14:09 BP 126 / 92; Pulse 83; Resp 16; Temp 98.2; Pulse Ox 100% on R/A; Pain 0/10; hb 15:30 BP 132 / 82; Pulse 80; Resp 18 S; Temp 98.3; Pulse Ox 99% on R/A; Pain 0/10; sg 16:45 BP 136 / 80; Pulse 77; Resp 17; Pulse Ox 100% on R/A; Pain 0/10; sg 19:30 BP 138 / 79; Pulse 81; Resp 17 S; Pulse Ox 99% on R/A; cc3 ED Course: 13:56 Patient arrived in ED. mr 13:57 Marni Bowman MD is Private Physician. mr 14:09 Triage completed. hb 14:10 Arm band placed on right wrist. hb 14:36 Julito Mckenzie MD is Attending Physician. kdr 15:10 Initial lab(s) drawn, by nm, sent to lab. jp3 15:14 Robin Dalal, RN is Primary Nurse. sg 15:18 Inserted saline lock: 20 gauge in right upper arm, using aseptic technique. Blood jp3 collected. 15:19 Basic Metabolic Panel Sent. jp3 15:19 CBC with Diff Sent. jp3 15:19 Creatinine for Radiology Sent. jp3 15:19 Hepatic Function Sent. jp3 15:19 Lipase Sent. jp3 17:34 CT Abd/Pelvis - W/Contrast In Process Unspecified. EDMS 18:20 Marni Bowman MD is Referral Physician. kdr 19:20 Patient has correct armband on for positive identification. Bed in low position. Call cc3 light in reach. Side rails up X 1. Pulse ox on. NIBP on. 19:20 No provider procedures requiring assistance completed. IV discontinued, intact, cc3 bleeding controlled, No redness/swelling at site. Pressure dressing applied. Administered Medications: 19:20 Drug: Pepcid 20 mg Route: PO; jd3 19:40 Follow up: Response: No adverse reaction; Pain is decreased cc3 Outcome: 18:20 Discharge ordered by . kdr 19:20 Discharged to home ambulatory. cc3 19:20 Condition: stable 19:20 Discharge instructions given to patient, Instructed on discharge instructions, follow up and referral plans. medication usage, Demonstrated understanding of instructions, follow-up care, medications, Prescriptions given X 1. 19:42 Patient left the ED. jd3 Signatures: Dispatcher [employer] EDMT Robin Dalal RN RN sg Rittger, Kevin, MD MD [facility] Caitlin Hicks Shyann Sheehan RN RN hb Davies, Jonathon, RN RN jd3 Pisarski, Jacob jp3 Kyalin Toscano cc3 Corrections: (The following items were deleted from the chart) 09/09 03:55 12 19:15 Reassessment: Patient appears in no apparent distress at this time. Patient cc3 and/or family updated on plan of care and expected duration. Pain level reassessed. Patient is alert, oriented x 3, equal unlabored respirations, skin warm/dry/pink. Received this male patient from morning shift YOHAN Kelly as a case of blood in stool, to irrigate left ear prior to sending home for discharge as per Dr. Mckenzie. cc3
[2018-09-08] MEDS ORDERED: FAMOTIDINE 20 MG TAB ONE (19:26)
[2018-09-08 20:19] VITALS: TEMP 98.3
[2018-09-08 20:22] VITALS: BP 136/80; O2SAT 100
== END 2018-09-08 19:42 | disposition home or self-care (01) ==
LOC: ER 13:54
DX: K62.5 Hemorrhage of anus and rectum (principal)
CPT/HCPCS: 36415; 74177; 80048; 80076; 83690; 85025; 99284; Q9967